=== PATIENT | female | born 1960 | race Caucasian/White ===

== ENCOUNTER → 2018-08-21 | Outpatient (CLI) | payer MEDICARE, BC | LOC: COL.RAD 09:45 → EDBD 09:45 → COL.RAD 10:10 | DX: M48.061 Spinal stenosis, lumbar region without neurogenic claudication (principal); Z98.1 Arthrodesis status | CPT/HCPCS: A9585 ==

== ENCOUNTER → 2018-09-05 | Outpatient (CLI) | payer MEDICARE, BC ==
--- NOTE | 2018-09-05 16:51 | NUR ---
CORWIN responded to ED consult. The patient had answered yes to questions 1-4 on the Suicide Risk Assessment. CORWIN then met with the patient and patient's daughter, Nadeen. The patient and her daughter were short with CORWIN and appeared upset. They reported they had another appointment to get to and were in a hurry. The patient reports that she is from [place], [place] and is currently staying with her daughter, Nadeen, in [place]. She states that she was seeing someone for her mental health back in [place] and the last time she met with them was three months ago. CORWIN asked the patient if SW can set her up with an appointment at [facility]. The patient refused. The patient reports if she sees anyone is will be at the [facility] in [place], where she has been getting primary care. CORWIN asked the patient if she can set her up with an appointment at the [facility] in [place]. The patient refused and said she could do it herself. CORWIN provided the [facility] to the patient. The patient refused the Behavioral Health Resource and did not take it.
== END ==
LOC: MHCPAIN 15:38
DX: G89.29 Other chronic pain (principal); M47.817 Spondylosis without myelopathy or radiculopathy, lumbosacral region; M54.16 Radiculopathy, lumbar region; M53.3 Sacrococcygeal disorders, not elsewhere classified; M96.1 Postlaminectomy syndrome, not elsewhere classified
CPT/HCPCS: G0463